=== PATIENT | female | born 2000 | race Caucasian/White ===

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

== ENCOUNTER → 2020-01-13 | Outpatient (CLI) | payer OTHER ==
--- NOTE | 2020-01-13 11:12 | US ---
EXAMINATION TYPE: US abdomen complete DATE OF EXAM: 01/13/2020 COMPARISON: NONE CLINICAL HISTORY: R10.84 ABD PAIN. Patient is morbidly obese EXAM MEASUREMENTS: Liver Length: 20.3 cm Gallbladder Wall: 0.2 cm CBD: 0.4 cm Spleen: 11.7 cm Right Kidney: 11.0 x 3.6 x 5.4 cm Left Kidney: 11.7 x 4.7 x 4.3 cm Pancreas: Obscured by bowel gas Liver: Enlarged. Echogenic echotexture Gallbladder: Multiple stones visualized Evidence for sonographic Villalta's sign: No CBD: wnl as visualized Spleen: wnl Right Kidney: No hydronephrosis or masses seen Left Kidney: No hydronephrosis or masses seen Upper IVC: wnl Abd Aorta: wnl The liver is echogenic and enlarged. The intrahepatic portion of the IVC and proximal abdominal aort a are within normal limits. Common bile duct is unremarkable. The visualized portions of the panc reas are homogenous. The spleen is unremarkable. Kidneys are symmetric and free of hydronephrosis, cortical medullary differentiation is maintained. There is no ascites.. No renal lesions are seen. IMPRESSION: Exam somewhat limited. Correlate for hepatic steatosis, there is hepatomegaly. Cholelithi asis.
== END | disposition home or self-care (01) ==
LOC: RADUSWWP 09:15
PROVIDERS: ATTEND Family Medicine
DX: R16.0 Hepatomegaly, not elsewhere classified (principal); K80.20 Calculus of gallbladder without cholecystitis without obstruction
CPT/HCPCS: 76700

== ENCOUNTER 2022-06-15 11:22 | Emergency (ER) | payer BC, OTHER ==
[2022-06-15] MEDS ORDERED: SODIUM CHLORIDE 0.9% 2,000 ML IV STA (12:21)
[2022-06-15] MEDS ORDERED: ONDANSETRON 4 MG/2 ML VIAL IVP STA (12:21)
[2022-06-15 13:25] LABS: Basophils % (A) 0 %; Eosinophils % (A) 0 %; HCT 38.6 % (34.0-46.0); HGB 13.2 gm/dL (11.4-16.0); Lymphocytes # (A) 0.8 k/uL (1.0-4.8); Lymphocytes % (A) 11 %; MCH 29.8 pg (25.0-35.0); MCHC 34.2 g/dL (31.0-37.0); Mean Platelet Volume 8.2; Monocytes # (A) 0.5 k/uL (0-1.0); Monocytes % (A) 7 %; Neutrophils % (A) 79 %; Platelet Count 331 k/uL (150-450); RBC 4.43 m/uL (3.80-5.40); RDW 13.7 % (11.5-15.5); WBC 7.6 k/uL (3.8-10.6)
--- NOTE | 2022-06-15 13:25 | XR ---
EXAMINATION TYPE: XR chest 2V DATE OF EXAM: 06/15/2022 1:16 PM COMPARISON: Chest radiographs from 05/27/2019 TECHNIQUE: XR chest 2V Frontal and lateral views of the chest. CLINICAL INDICATION:Female, 21 years old with history of pain; FINDINGS: Lungs/Pleura: There is no evidence of pleural effusion, focal consolidation, or pneumothorax. Pulmonary vascularity: Unremarkable. Heart/mediastinum: Cardiomediastinal silhouette is unremarkable. Musculoskeletal: No acute osseous pathology. IMPRESSION: No acute cardiopulmonary disease/process.
[2022-06-15 13:50] LABS: ALT 131 U/L (4-34); AST 79 U/L (14-36); African American GFR (CKD) >90 (>60 ml/min/1.73 sqM); Albumin 4.6 g/dL (3.5-5.0); Alkaline Phosphatase 67 U/L (38-126); Anion Gap 13 mmol/L; Blood Urea Nitrogen 9 mg/dL (7-17); Calcium 9.7 mg/dL (8.4-10.2); Carbon Dioxide 22 mmol/L (22-30); Chloride 109 mmol/L (98-107); Glucose 153 mg/dL (74-99); Non-African American GFR(CKD) >90 (>60 ml/min/1.73 sqM); Potassium 3.3 mmol/L (3.5-5.1); Sodium 144 mmol/L (137-145); Total Bilirubin 0.4 mg/dL (0.2-1.3); Total Protein 7.7 g/dL (6.3-8.2)
[2022-06-15] MEDS ORDERED: ONDANSETRON 4 MG ODT STARTER PACK 2 TAB BTL PO STA (15:44)
--- NOTE | 2022-06-15 15:44 | ED ---
General Adult HPI - General Chief complaint: Nausea/Vomiting/Diarrhea Stated complaint: vomiting blood Time Seen by Provider: 06/15/22 11:30 Source: patient Mode of arrival: ambulatory Limitations: no limitations - History of Present Illness Initial comments: Patient is a 21 year old female with past medical history of asthma who presents to the emergency department reporting nausea and vomiting. She states that she has been sick since the . She went into [facility] yesterday with complaints of shortness of breath and fever. She was found to be positive for influenza A. They did not place her on Tamiflu as she was outside the window. Did place her on steroids and breathing treatments because she was wheezing. She reports that her breathing has been under control however she has had intense nausea and vomiting to where she can't hold down anything to eat or drink. She has been vomiting so much that she started to vomit blood the last 4 hours. She continues to have body aches and diarrhea. She has not taken anything for her nausea. No other alleviating, precipitating or modifying factors - Related Data Home Medications Medication Instructions Recorded Confirmed Albuterol Inhaler [Ventolin Hfa 2 puff INHALATION RT-Q6H PRN 05/25/19 06/15/22 Inhaler] Albuterol Nebulized [Ventolin 2.5 mg INHALATION RT-Q6H PRN 06/15/22 06/15/22 Nebulized] Ibuprofen [Motrin] 600 mg PO DIRECTED PRN 06/15/22 06/15/22 Loratadine-Pseudoeph 5-120 mg 1 tab PO DIRECTED 06/15/22 06/15/22 [Claritin-D 12 Hour] Symbicort (Unknown Strength) 2 puff INHALATION DIRECTED 06/15/22 06/15/22 methylPREDNISolone Dose Pack See Taper PO DIRECTED 06/15/22 06/15/22 [Medrol Dose Pack] Previous Rx's Medication Instructions Recorded Ondansetron Odt [Zofran Odt] 4 mg PO Q8HR PRN #30 tab 06/15/22 Allergies Allergy/AdvReac Type Severity Reaction Status Date / Time No Known Allergies Allergy Verified 06/15/22 12:30 Review of Systems ROS Statement: Those systems with pertinent positive or pertinent negative responses have been documented in the HPI. ROS Other: All systems not noted in ROS Statement are negative. Past Medical History Past Medical History: Asthma History of Any Multi-Drug Resistant Organisms: None Reported Additional Past Surgical History / Comment(s): plastic surgery of right eye due to childhood injury, Past Anesthesia/Blood Transfusion Reactions: No Reported Reaction Past Psychological History: No Psychological Hx Reported Smoking Status: Current every day smoker, Vaper Past Alcohol Use History: None Reported Past Drug Use History: None Reported, Marijuana - Past Family History Mother Family Medical History: Asthma, Fibromyalgia Additional Family Medical History / Comment(s): DDD, Arthritis. Father Family Medical History: Diabetes Mellitus, Fibromyalgia, Hypertension Additional Family Medical History / Comment(s): Arthritis General Exam Limitations: no limitations General appearance: alert, in no apparent distress Head exam: Present: atraumatic, normocephalic, normal inspection Eye exam: Present: normal appearance, PERRL, EOMI. Absent: scleral icterus, conjunctival injection, periorbital swelling ENT exam: Present: normal exam, mucous membranes moist Neck exam: Present: normal inspection. Absent: tenderness, meningismus, lymphadenopathy Respiratory exam: Present: normal lung sounds bilaterally. Absent: respiratory distress, wheezes, rales, rhonchi, stridor Cardiovascular Exam: Present: regular rate, normal rhythm, normal heart sounds. Absent: systolic murmur, diastolic murmur, rubs, gallop, clicks GI/Abdominal exam: Present: soft, normal bowel sounds. Absent: distended, tenderness, guarding, rebound, rigid Extremities exam: Present: normal inspection, full ROM, normal capillary refill. Absent: tenderness, pedal edema, joint swelling, calf tenderness Back exam: Present: normal inspection Neurological exam: Present: alert, oriented X3, CN II-XII intact Psychiatric exam: Present: normal affect, normal mood Skin exam: Present: warm, dry, intact, normal color. Absent: rash Course Vital Signs 06/15/22 06/15/22 11:24 16:24 Temperature 97.3 F L 97.9 F Pulse Rate 76 61 Respiratory 12 16 Rate Blood Pressure 111/79 136/90 O2 Sat by Pulse 94 L 98 Oximetry Medical Decision Making - Medical Decision Making Upon arrival patient was placed into room 10. A thorough history and physical exam was performed. IV access was established and the patient was given a 2 L bolus of normal saline. She is also given 4 mg of Zofran. Laboratory studies are conducted and a chest x-ray is performed. Laboratory studies are reviewed by myself. Potassium 3.3. Chest x-ray demonstrates no acute process. Patient is able to drink and tolerate water. She feels comfortable being discharged at this time. She is instructed to take the Zofran I will be prescribed as needed for nausea. Increase fluid intake. Follow-up with her doctor and return for any new or worsening symptoms. Patient agreeable to treatment plan and was discharged home in stable condition - Lab Data Result diagrams: 06/15/22 12:50 06/15/22 12:50 Lab Results 06/15/22 06/15/22 06/15/22 Range/Units 12:50 12:50 12:50 WBC 7.6 (3.8-10.6) k/uL RBC 4.43 (3.80-5.40) m/uL Hgb 13.2 (11.4-16.0) gm/dL Hct 38.6 (34.0-46.0) % MCV 87.0 (80.0-100.0) fL MCH 29.8 (25.0-35.0) pg MCHC 34.2 (31.0-37.0) g/dL RDW 13.7 (11.5-15.5) % Plt Count 331 (150-450) k/uL MPV 8.2 Neutrophils % 79 % Lymphocytes % 11 % Monocytes % 7 % Eosinophils % 0 % Basophils % 0 % Neutrophils # 6.0 (1.3-7.7) k/uL Lymphocytes # 0.8 L (1.0-4.8) k/uL Monocytes # 0.5 (0-1.0) k/uL Eosinophils # 0.0 (0-0.7) k/uL Basophils # 0.0 (0-0.2) k/uL Sodium 144 (137-145) mmol/L Potassium 3.3 L (3.5-5.1) mmol/L Chloride 109 H (98-107) mmol/L Carbon Dioxide 22 (22-30) mmol/L Anion Gap 13 mmol/L BUN 9 (7-17) mg/dL Creatinine 0.66 (0.52-1.04) mg/dL Est GFR (CKD-EPI)AfAm >90 (>60 ml/min/1.73 sqM) Est GFR (CKD-EPI)NonAf >90 (>60 ml/min/1.73 sqM) Glucose 153 H (74-99) mg/dL Plasma Lactic Acid Tino 1.2 (0.7-2.0) mmol/L Calcium 9.7 (8.4-10.2) mg/dL Total Bilirubin 0.4 (0.2-1.3) mg/dL AST 79 H (14-36) U/L ALT 131 H (4-34) U/L Alkaline Phosphatase 67 (38-126) U/L Total Protein 7.7 (6.3-8.2) g/dL Albumin 4.6 (3.5-5.0) g/dL Disposition Clinical Impression: Influenza A, Nausea and vomiting Disposition: HOME SELF-CARE Condition: Stable Instructions (If sedation given, give patient instructions): Influenza (ED) Additional Instructions: Please take the nausea medications as directed. Return for any new or worsening symptoms. Prescriptions: Ondansetron Odt [Zofran Odt] 4 mg PO Q8HR PRN #30 tab PRN Reason: Nausea Is patient prescribed a controlled substance at d/c from ED?: No Referrals: None,Stated [Primary Care Provider] - 1-2 days Time of Disposition: 15:44
[2022-06-15 16:26] VITALS: BP 136/90; PULSE 61; RESP 16; TEMP 97.9
== END 2022-06-15 16:25 | disposition home or self-care (01) ==
LOC: EC 11:22
DX: J10.1 Influenza due to other identified influenza virus with other respiratory manifestations (principal); J45.909 Unspecified asthma, uncomplicated; F17.290 Nicotine dependence, other tobacco product, uncomplicated; F12.90 Cannabis use, unspecified, uncomplicated; Z79.899 Other long term (current) drug therapy
CPT/HCPCS: 99284 ×2; 96374 ×2; 96361 ×5; 36415; 80053; 83605; 85025; 71046; J2405; S0119

== ENCOUNTER → 2022-12-12 | Outpatient (CLI) | payer OTHER ==
[2022-12-12 20:06] LABS: Amylase 36 U/L (23-121); Chol/HDL Ratio 2.34 Ratio; LDL Cholesterol,Calculated 68.3 mg/dL (0.0-131.0); Lipase 15 U/L (14-63)
[2022-12-12 20:07] LABS: ALT 13 U/L (8-44); AST 12 U/L (13-35); Albumin 4.3 d/dL (3.8-4.9); Albumin/Globulin Ratio 1.34 Ratio (1.60-3.17); Alkaline Phosphatase 65 U/L (41-126); Blood Urea Nitrogen 11.2 mg/dL (9.0-27.0); Calcium 9.6 mg/dL (8.7-10.3); Chloride 102 mmol/L (96-109); Globulin 3.2 d/dL (1.6-3.3); Glucose 90 mg/dL (70-110); Potassium 5.1 mmol/L (3.5-5.5); Sodium 136 mmol/L (135-145); Total Bilirubin 0.3 mg/dL (0.3-1.2); Total Protein 7.5 d/dL (6.2-8.2)
[2022-12-12 21:22] LABS: Basophils # (A) 0.05 X 10*3/uL (0.00-0.10); Basophils % (A) 0.8 %; Eosinophils # (A) 0.17 X 10*3/uL (0.04-0.35); Eosinophils % (A) 2.7 %; HCT 39.9 % (37.2-46.3); Lymphocytes # (A) 1.13 X 10*3/uL (0.90-5.00); Lymphocytes % (A) 17.8 %; MCH 27.4 pg (27.0-32.0); MCHC 30.1 d/dL (32.0-37.0); MCV 91.1 FL (80.0-97.0); Mean Platelet Volume 9.8 FL (9.5-12.2); Monocytes # (A) 0.47 X 10*3/uL (0.20-1.00); Monocytes % (A) 7.4 %; NRBC Per 100 WBC 0 X 10*3/uL (0.00-0.01); Neutrophils # (A) 4.51 X 10*3/uL (1.80-7.70); Neutrophils % (A) 71.1 %; Platelet Count 410 X 10*3/uL (140-440); RBC 4.38 X 10*6/uL (4.10-5.20); RDW 13.9 % (11.5-14.5); WBC 6.34 X 10*3/uL (4.50-10.00)
== END | disposition home or self-care (01) ==
LOC: LABWHC1 13:18
PROVIDERS: ATTEND Nurse Practitioner Family
DX: Z13.220 Encounter for screening for lipoid disorders (principal); Z13.29 Encounter for screening for other suspected endocrine disorder; E66.01 Morbid (severe) obesity due to excess calories; R10.84 Generalized abdominal pain
CPT/HCPCS: 36415; 80053; 80061; 82150; 82306; 83036; 83690; 84443; 85025

== ENCOUNTER → 2023-06-05 | Outpatient (CLI) | payer OTHER ==
--- NOTE | 2023-06-05 15:02 | XR ---
Spine and 3 view lumbosacral spine. DATE: 06/05/2023. COMPARISON: None available. MEDICAL HISTORY: Fall. FINDINGS: The vertebral bodies are well aligned without evidence of fracture, subluxation or dislocation. The vertebral body heights and disc spaces are maintained. The SI joints also appear unremarkable. IMPRESSION: No fracture, subluxation or dislocation.
== END | disposition home or self-care (01) ==
LOC: RADXRMAIN 14:12
PROVIDERS: ATTEND Emergency Medicine
DX: S30.0XXA Contusion of lower back and pelvis, initial encounter (principal)
CPT/HCPCS: 72100; 72220

== ENCOUNTER → 2023-06-10 | Outpatient (CLI) | payer OTHER ==
--- NOTE | 2023-06-10 17:13 | XR ---
EXAMINATION TYPE: XR tibia fibula RT, XR knee complete RT DATE OF EXAM: 06/10/2023 4:53 PM CLINICAL INDICATION:Female, 22 years old with history of S80.00XD; PHH COMPARISON: None TECHNIQUE: XR tibia fibula RT, XR knee complete RT; tibia/fibula was examined in AP and lateral proje ctions. The knee was evaluated in frontal lateral and oblique views. FINDINGS: No evidence of any acute osseous pathology, joint dislocation, or soft tissue swelling is n oted. The knee is intact No evidence for significant degeneration. No significant joint effusion identified . IMPRESSION: No evidence of acute fracture.
== END | disposition home or self-care (01) ==
LOC: RADXRMAIN 16:02
PROVIDERS: ATTEND Emergency Medicine
DX: S80.00XD Contusion of unspecified knee, subsequent encounter (principal)

== ENCOUNTER → 2023-06-20 | Outpatient (CLI) | payer OTHER ==
--- NOTE | 2023-06-20 15:57 | US ---
EXAMINATION TYPE: US venous doppler duplex LE RT DATE OF EXAM: 06/20/2023 3:48 PM COMPARISON: NONE CLINICAL INDICATION: Female, 22 years old with history of S80.11XD S83.91XD M79.604 CRAMPING RT STEVEN F, RT KNEE CONTUS; Right leg injury at work, pain SIDE PERFORMED: Right TECHNIQUE: The lower extremity deep venous system is examined utilizing real time linear array sonog carrillo with graded compression, doppler sonography and color-flow sonography. VESSELS IMAGED: Common Femoral Vein Deep Femoral Vein Greater Saphenous Vein * Femoral Vein Popliteal Vein Small Saphenous Vein * Proximal Calf Veins (* superficial vessels) Right Leg: Negative for DVT Attempted to call PA with results- incorrect phone number given to techs IMPRESSION: Grayscale, color doppler, spectral doppler imaging performed of the deep veins of the lo wer extremities. There is normal flow, compressibility, vascular waveforms.
== END | disposition home or self-care (01) ==
LOC: RADUSWWP 15:25
PROVIDERS: ATTEND Emergency Medicine
DX: S80.11XD Contusion of right lower leg, subsequent encounter (principal); S83.91XD Sprain of unspecified site of right knee, subsequent encounter; X58.XXXD Exposure to other specified factors, subsequent encounter

== ENCOUNTER → 2023-07-04 | Outpatient (CLI) | payer OTHER ==
--- NOTE | 2023-07-04 16:19 | XR ---
EXAMINATION TYPE: XR tibia fibula RT, XR foot complete RT, XR ankle complete RT DATE OF EXAM: 07/04/2023 CLINICAL HISTORY: Sprain injury TECHNIQUE: Two views of the right leg are obtained. 3 views of right ankle and foot are acquired. COMPARISON: None. FINDINGS: There is no acute fracture or dislocation seen in the right tibia or fibula. No acute frac ture or dislocation in the right ankle. Ankle mortise symmetry is preserved. No acute fracture or dis location in the right foot. Joint spaces are maintained. Overlying soft tissue is unremarkable. IMPRESSION: There is no acute fracture or dislocation seen in the right leg, ankle, or foot.
== END | disposition home or self-care (01) ==
LOC: RADXRMAIN 15:52
PROVIDERS: ATTEND Emergency Medicine
DX: S80.11XA Contusion of right lower leg, initial encounter (principal); S83.91XA Sprain of unspecified site of right knee, initial encounter; S93.401A Sprain of unspecified ligament of right ankle, initial encounter; S93.601A Unspecified sprain of right foot, initial encounter; X58.XXXA Exposure to other specified factors, initial encounter

== ENCOUNTER → 2023-07-08 | Outpatient (CLI) | payer OTHER ==
--- NOTE | 2023-07-08 14:30 | US ---
EXAMINATION TYPE: US venous doppler duplex LE RT DATE OF EXAM: 07/08/2023 2:18 PM COMPARISON: Right lower extremity venous ultrasound 06/20/2023. CLINICAL INDICATION: Female, 22 years old with history of pain; Fell at work and in parking lot, righ t leg pain, no h/o dvt SIDE PERFORMED: Right TECHNIQUE: The lower extremity deep venous system is examined utilizing real time linear array sonog carrillo with graded compression, doppler sonography and color-flow sonography. VESSELS IMAGED: Common Femoral Vein Deep Femoral Vein Greater Saphenous Vein * Femoral Vein Popliteal Vein Small Saphenous Vein * Proximal Calf Veins (* superficial vessels) Grayscale, color doppler, spectral doppler imaging performed of the deep veins of the right lower ext remity. There is normal flow, compressibility, vascular waveforms. Right Leg: Negative for DVT IMPRESSION: No deep venous thrombosis of the right lower extremity.
== END | disposition home or self-care (01) ==
LOC: RADUSWWP 13:58
PROVIDERS: ATTEND Emergency Medicine
DX: S83.91XD Sprain of unspecified site of right knee, subsequent encounter (principal); W19.XXXD Unspecified fall, subsequent encounter

== ENCOUNTER → 2023-07-28 | Outpatient (CLI) | payer OTHER ==
--- NOTE | 2023-07-28 19:44 | XR ---
Right ankle. HISTORY: Pain finding trauma COMPARISON: 07/04/2023. TECHNIQUE: 3 views of right ankle were obtained. FINDINGS: There is no fracture, dislocation or focal intraosseous abnormality. The ankle mortise is intact. There is mild soft tissue swelling over the ankle which has decreased in the interval since the prior study. IMPRESSION: 1. No fracture or intra-articular abnormality. 2. Mild soft tissue swelling which has improved compared to previous study.
--- NOTE | 2023-07-28 19:46 | XR ---
Right foot. HISTORY: Pain following trauma COMPARISON: 07/04/2023. TECHNIQUE: 3 views the right foot were obtained. FINDINGS: There is no fracture, dislocation, interosseous, intra-articular soft tissue abnormality. IMPRESSION: No significant abnormality seen.
== END | disposition home or self-care (01) ==
LOC: RADXRMAIN 16:02
PROVIDERS: ATTEND Emergency Medicine
DX: M79.89 Other specified soft tissue disorders (principal); S93.401D Sprain of unspecified ligament of right ankle, subsequent encounter; S93.601D Unspecified sprain of right foot, subsequent encounter; X58.XXXD Exposure to other specified factors, subsequent encounter

== ENCOUNTER → 2023-07-28 | Outpatient (CLI) | payer OTHER ==
--- NOTE | 2023-07-29 08:21 | MR ---
EXAMINATION TYPE: MR lumbar spine wo con DATE OF EXAM: 07/28/2023 COMPARISON: No prior MRI. Plain film 06/05/2023 is reviewed. HISTORY: Low back pain due to injury at work. CONTRAST: 0 mL intravenous Gadavist. TECHNIQUE: Multiplanar, multisequence images of the lumbar spine were acquired. FINDINGS: L5-S1: No significant disc bulge or disc herniation. No spinal canal stenosis. No foraminal stenosi s. L4-L5: No significant disc bulge or disc herniation. No spinal canal stenosis. No foraminal stenosi s. L3-L4: There is an annular tear in the center disc space. Mild disc bulge has mild anterior thecal sa c compression. No AP spinal canal stenosis is present. Neural foramen are patent No spinal canal marilin nosis. No foraminal stenosis. L2-L3: No significant disc bulge or disc herniation. No spinal canal stenosis. No foraminal stenosi s. L1-L2: No significant disc bulge or disc herniation. No spinal canal stenosis. No foraminal stenosi s. T12-L1: No significant disc bulge or disc herniation. No spinal canal stenosis. No foraminal stenos is. IMPRESSION: 1. Annular tear at L3-4 with central disc bulging with mild anterior thecal sac compression.
--- NOTE | 2023-07-31 09:28 | MR ---
EXAMINATION TYPE: MR knee RT wo con DATE OF EXAM: 07/28/2023 COMPARISON: Right knee radiograph 06/10/2023 HISTORY: Right knee pain due to injury at work. TECHNIQUE: Multiplanar, multisequence imaging of the right knee is performed without contrast. FINDINGS: Medial meniscus: Intact. Medial compartment cartilage: Normal. Medial collateral ligament: Intact. Lateral meniscus: Intact. Lateral compartment cartilage: Normal. Lateral collateral ligament: Intact. Patellofemoral alignment: Normal. 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 Extensor mechanism: Normal. Anterior cruciate ligament: Intact. Posterior cruciate ligament: Intact. Bone marrow: Normal. Soft tissues: There is intramuscular edema within the vastus lateralis muscle and tiny amount of flui d signal along the superficial myofascial plane. No joint effusion. No Mckinnon's cyst. Neurovascular: Normal. IMPRESSION: 1. Intact cruciates, collaterals, and menisci. No fracture. 2. Mild patellar chondromalacia. 3. Vastus lateralis muscle strain.
== END | disposition home or self-care (01) ==
LOC: RADMRIMAIN 20:45
PROVIDERS: ATTEND Emergency Medicine
DX: M51.26 Other intervertebral disc displacement, lumbar region (principal); M22.41 Chondromalacia patellae, right knee; S30.0XXD Contusion of lower back and pelvis, subsequent encounter; S76.811D Strain of other specified muscles, fascia and tendons at thigh level, right thigh, subsequent encounter; S83.91XD Sprain of unspecified site of right knee, subsequent encounter; S80.11XD Contusion of right lower leg, subsequent encounter; S93.401D Sprain of unspecified ligament of right ankle, subsequent encounter; S93.601D Unspecified sprain of right foot, subsequent encounter; M79.604 Pain in right leg; X58.XXXD Exposure to other specified factors, subsequent encounter
CPT/HCPCS: 72148

== ENCOUNTER → 2023-09-05 | Outpatient (CLI) | payer OTHER ==
--- NOTE | 2023-09-07 13:22 | MR ---
MRI right ankle HISTORY: Pain COMPARISON: None. TECHNIQUE: Multiecho multiplanar images right ankle were obtained. FINDINGS: There are contusions of the medial malleolus, medial aspect of the fibula and extensively through the talus but no discrete fractures are seen. There are no osteochondral defects. The ankle mortise is intact. There is disruption of the anterior talofibular ligament with extensive fluid in the anterior lateral joint space. There is no tendon tear or tenosynovitis involving the lateral peroneal tendons or the flexor or exte nsor tendons of the foot. The Achilles tendon is normal. The plantar soft tissues are unremarkable. The sinus tarsi is normal. IMPRESSION: 1. Bone contusions involving the medial and lateral malleolus and talus as described above with no di screte fracture. 2. Disruption of the anterior talofibular ligament with joint effusion.
== END | disposition home or self-care (01) ==
LOC: RADMRIMAIN 12:55
PROVIDERS: ATTEND Orthopaedic Surgery
DX: S90.01XA Contusion of right ankle, initial encounter (principal); M25.471 Effusion, right ankle; X58.XXXA Exposure to other specified factors, initial encounter